=== PATIENT | female | born 1945 | race Caucasian/White ===

== ENCOUNTER → 2017-10-28 | Outpatient (CLI) | payer MEDICARE ==
[2017-10-28 13:38] LABS: Bilirubin, Urine Neg (Neg); Blood, Urine 5+ (Neg); Glucose Qualitative, Urine Neg (Neg); Ketones, Urine Neg (Neg); Leukocyte Esterase, Urine 3+ (Neg); Nitrite, Urine Pos (Neg); Protein, Urine 3+ (Neg); Urobilinogen, Urine NORM (Normal)
[2017-10-28 13:50] LABS: Appearance, Urine Clear (Clear); Color, Urine Yellow (P-Yellow); Red Blood Cells, Urine 25-50 /hpf (0-2); White Blood Cells, Urine 50-100 /hpf (0-5)
[2017-10-28 13:51] LABS: Bacteria Many /hpf; Squamous Epithelial Cells Not Seen /hpf (Few)
== END | disposition home or self-care (01) ==
LOC: LAB 13:30
PROVIDERS: Nurse Practitioner Family
DX: N39.0 Urinary tract infection, site not specified (principal)
CPT/HCPCS: 81001; 87077; 87086; 87186

== ENCOUNTER → 2018-12-25 | Outpatient (CLI) | payer MEDICARE, OTHER ==
[2018-12-25 17:15] LABS: Source, Urine Clean Catch
[2018-12-25 17:53] LABS: Bilirubin, Urine Neg (Neg); Blood, Urine 3+ (Neg); Glucose Qualitative, Urine Neg (Neg); Ketones, Urine Neg (Neg); Leukocyte Esterase, Urine 2+ (Neg); Nitrite, Urine Neg (Neg); Protein, Urine Neg (Neg); Urobilinogen, Urine NORM (Normal)
[2018-12-25 19:03] LABS: Color, Urine Pale Yellow (P-Yellow)
[2018-12-25 19:04] LABS: Appearance, Urine Clear (Clear)
[2018-12-25 19:05] LABS: Bacteria Rare /hpf; Red Blood Cells, Urine 0-2 /hpf (0-2); Squamous Epithelial Cells Few /hpf (Few)
== END | disposition home or self-care (01) ==
LOC: LAB 17:13 → LAB SHORT 17:13
PROVIDERS: Nurse Practitioner Family
DX: Z01.30 Encounter for examination of blood pressure without abnormal findings (principal); R30.0 Dysuria
CPT/HCPCS: 81001; 87077; 87086; 87186

== ENCOUNTER → 2019-03-09 | Outpatient (CLI) | payer MEDICARE, OTHER ==
[2019-03-09 18:57] LABS: Alanine Aminotransfer (ALT/SGP 24 U/L (12-78); Albumin, Blood 3.7 g/dL (3.4-5.0); Albumin/Globulin Ratio 1.1 (0.8-1.8); Alk Phos 49 U/L (50-136); Anion Gap 5 mmol/L (6-16); Aspartate Aminotrans (AST/SGOT 13 U/L (12-37); Bilirubin, Total 0.3 mg/dL (0.1-1.0); Blood Urea Nitrogen 14 mg/dL (8-24); Bun/Creatinine Ratio 18.6 (12.0-20.0); CO2, Blood 27 mmol/L (21-32); Calcium, Blood 9.2 mg/dL (8.5-10.1); Chloride, Blood 102 mmol/L (98-108); Creatinine, Blood 0.75 mg/dL (0.40-1.00); Globulin, Blood 3.4 g/dL (2.2-4.0); Glomerular Filtration Rate >60 (60-); Glucose, Blood 94 mg/dL (70-99); Potassium, Blood 3.8 mmol/L (3.5-5.5); Sodium, Blood 134 mmol/L (136-145); Total Protein, Blood 7.1 g/dL (6.4-8.2)
== END | disposition home or self-care (01) ==
LOC: LAB 18:29 → LAB SHORT 18:29
PROVIDERS: Nurse Practitioner Primary Care
DX: I10 Essential (primary) hypertension (principal); R25.2 Cramp and spasm
CPT/HCPCS: 80053

== ENCOUNTER → 2019-09-20 | Outpatient (CLI) | payer MEDICARE, OTHER | END | disposition home or self-care (01) | LOC: LAB 18:50 → LAB SHORT 18:50 | DX: N39.0 Urinary tract infection, site not specified (principal) | CPT/HCPCS: 87077; 87086; 87186 ==

== ENCOUNTER → 2019-10-07 | Outpatient (CLI) | payer MEDICARE, OTHER | END | disposition home or self-care (01) | LOC: LAB SHORT 12:00 → LAB 12:00 | DX: R31.21 Asymptomatic microscopic hematuria (principal) | CPT/HCPCS: 88108 ==

== ENCOUNTER → 2019-12-14 | Outpatient (CLI) | payer MEDICARE, OTHER | LOC: LAB SHORT 12:35 → LAB 12:35 → LAB FUT 12-13 15:25 → EDSTATUS 12-13 15:25 | DX: N39.0 Urinary tract infection, site not specified (principal); R33.9 Retention of urine, unspecified | CPT/HCPCS: 87077; 87086; 87186 ==

== ENCOUNTER → 2021-02-20 | Outpatient (CLI) | payer OTHER ==
[2021-02-20 19:01] LABS: Microalb/Creat Ratio UR, Rand Unable to Calculate mg/g (0.000-30.000); Microalbumin, Random Urine <5.000 mg/L (0.000-20.000)
== END | disposition home or self-care (01) ==
LOC: LAB 13:20 → LAB SHORT 13:20 → LAB FUT 02-13 14:10
PROVIDERS: Family Medicine
DX: E11.59 Type 2 diabetes mellitus with other circulatory complications (principal)
CPT/HCPCS: 82043; 82570

== ENCOUNTER → 2021-04-30 | Outpatient (CLI) | payer OTHER ==
[2021-04-30 13:54] LABS: Source, Urine Voided
[2021-04-30 18:42] LABS: Appearance, Urine Hazy (Clear); Blood, Urine 4+ (Neg); Glucose Qualitative, Urine Neg (Neg); Ketones, Urine Neg (Neg); Leukocyte Esterase, Urine 3+ (Neg); Nitrite, Urine Pos (Neg); Protein, Urine 2+ (Neg); Urobilinogen, Urine 3+ (Normal)
[2021-04-30 18:53] LABS: Bilirubin, Urine 3+ (Neg)
[2021-04-30 18:56] LABS: Color, Urine Orange (P-Yellow)
[2021-04-30 18:58] LABS: Bacteria Many /hpf; Squamous Epithelial Cells Few /hpf (Few); Transitional Epithelial Cells Few /hpf (0-Rare); White Blood Cells, Urine 50-100 /hpf (0-5)
== END | disposition home or self-care (01) ==
LOC: LAB 13:52 → LAB SHORT 13:52
PROVIDERS: Nurse Practitioner Family
DX: R30.9 Painful micturition, unspecified (principal)
CPT/HCPCS: 81001; 87077; 87086; 87186

== ENCOUNTER → 2021-05-11 | Outpatient (CLI) | payer OTHER | END | disposition home or self-care (01) | LOC: LAB SHORT 16:50 → LAB 16:50 | DX: N39.0 Urinary tract infection, site not specified (principal) | CPT/HCPCS: 87086 ==

== ENCOUNTER → 2021-05-25 | Outpatient (CLI) | payer OTHER | END | disposition home or self-care (01) | LOC: LAB 14:06 → LAB SHORT 14:06 | DX: R30.9 Painful micturition, unspecified (principal) | CPT/HCPCS: 87077; 87086; 87186 ==

== ENCOUNTER → 2021-06-14 | Outpatient (CLI) | payer OTHER | END | disposition home or self-care (01) | LOC: LAB SHORT 14:00 | DX: N39.0 Urinary tract infection, site not specified (principal) | CPT/HCPCS: 87077; 87086; 87186 ==

== ENCOUNTER → 2021-07-13 | Outpatient (CLI) | payer OTHER | END | disposition home or self-care (01) | LOC: LAB SHORT 14:16 | DX: R30.9 Painful micturition, unspecified (principal); R30.0 Dysuria | CPT/HCPCS: 87077; 87086; 87186 ==

== ENCOUNTER → 2021-08-03 | Outpatient (CLI) | payer OTHER | END | disposition home or self-care (01) | LOC: LAB SHORT 11:10 | DX: R30.9 Painful micturition, unspecified (principal) | CPT/HCPCS: 87077; 87086; 87186 ==

== ENCOUNTER → 2024-05-21 | Outpatient (CLI) | payer OTHER ==
[2024-05-21 19:08] LABS: Creatinine, Urine Random 45.8 mg/dL (27.00-270.00)
[2024-05-21 19:11] LABS: Microalb/Creat Ratio UR, Rand 34.716 mg/g (0.000-30.000); Microalbumin, Random Urine 15.9 mg/L (0.000-20.000)
== END | disposition home or self-care (01) ==
LOC: LAB 11:40 → LAB SHORT 11:40
PROVIDERS: Family Medicine
DX: E11.59 Type 2 diabetes mellitus with other circulatory complications (principal); E78.5 Hyperlipidemia, unspecified; E03.9 Hypothyroidism, unspecified; I10 Essential (primary) hypertension
CPT/HCPCS: 82043; 82570